=== PATIENT | female | born 1990 | race Caucasian/White ===

== ENCOUNTER 2016-10-16 20:10 | Emergency (ER) | payer BC ==
[~2016-10-16] VITALS: Ht 167.6 cm; Wt 51.7 kg
[2016-10-16 20:25] VITALS: BP_SYST 111
[2016-10-16] MEDS ORDERED: DIPH-TET-PERTUS Vaccine 0.5 ML VIAL (ADACEL) I.M. ONE (22:00)
[2016-10-16] MEDS ORDERED: KETOROLAC TROMETHAMINE 60 MG/2 ML VIAL IM ONE (22:00)
[2016-10-17] MEDS ORDERED: LIDOCAINE 1% 10 MG/ML, 20 ML MDV IJ ONE
[2016-10-17] MEDS ORDERED: BACITRACIN 1 GM OINT TP ONE (01:00)
[2016-10-17 01:06] VITALS: BP_SYST 97
== END 2016-10-17 01:06 | disposition home or self-care (01) ==
LOC: SED 20:10
DX: S62.626A Displaced fracture of middle phalanx of right little finger, initial encounter for closed fracture (principal); S61.256A Open bite of right little finger without damage to nail, initial encounter; W54.0XXA Bitten by dog, initial encounter; Y93.89 Activity, other specified; Y99.8 Other external cause status; Y92.89 Other specified places as the place of occurrence of the external cause
CPT/HCPCS: 12001; 29130; 73130; 81025; 90471; 90715; 96372; 99284; J1885; J2001